=== PATIENT | male | born 1950 | race Caucasian/White ===

== ENCOUNTER 2018-06-20 21:28 | Inpatient (IN) | payer BC, OTHER ==
[~2018-06-20] VITALS: Ht 185.4 cm; Wt 90.7 kg
[2018-06-20 21:28] VITALS: BP_SYST 166
--- NOTE | 2018-06-20 21:35 | NUR ---
DINESH Cao at bedside examining patient.
--- NOTE | 2018-06-20 21:40 | NUR ---
Pt came to the ED for sudden onset of constant nausea associated with emesis all day since 0600 this morning. Pts reports she gave zofran and compazine PO with no relief. Pts last BM was today but was normal. Pts last chemo treatment was 1.5 months ago. Per pt, he a lobectomy two weeks ago at [facility]. Denies diarrhea, constipation, raw food consumption, no other complaints/injuries noted. Denies pain. Will cont. to monitor.
[2018-06-20] MEDS ORDERED: METOCLOPRAMIDE HCL 10 MG/2 ML VIAL IVP ONE (21:45)
--- NOTE | 2018-06-20 21:45 | NUR ---
DINESH Zamora at bedside examining patient.
[2018-06-20 22:15] LABS: BASOPHILS % (AUTO) 0.4 % (0.0-2.0); CREATININE 1.01 mg/dL (0.55-1.30); EOSINOPHILS % (AUTO) 0.1 % (0.0-4.0); HEMATOCRIT 38.2 % (36-54); HEMOGLOBIN 13.1 g/dL (14.0-18.0); LYMPHOCYTES # (AUTO) 1.3 K/uL (1.0-5.5); LYMPHOCYTES % (AUTO) 9.7 % (20.5-51.5); MEAN CORPUSCULAR HEMOGLOBIN 31 pg (27-31); MEAN CORPUSCULAR HGB CONC 34 % (32-36); MEAN CORPUSCULAR VOLUME 89 fL (79.0-98.0); MONOCYTES # (AUTO) 0.4 K/uL (0.0-1.0); MONOCYTES % (AUTO) 2.9 % (1.7-9.3); NEUTROPHILS # (AUTO) 11.3 K/uL (1.8-7.7); NEUTROPHILS % (AUTO) 86.9 % (40.0-70.0); PLATELET COUNT (AUTO) 617 K/uL (130-430); POTASSIUM 3.2 mmol/L (3.5-5.1); RED BLOOD CELL COUNT(AUTO) 4.29 MIL/uL (4.2-6.2); RED CELL DISTRIBUTION WIDTH 16.8 % (9.0-15.0); WHITE BLOOD COUNT (AUTO) 13.2 K/uL (4.8-10.8)
[2018-06-20] MEDS ORDERED: NS 500 ML IV ONE (22:15)
[2018-06-20 22:19] LABS: PROTHROMBIN TIME 10.3 SECS (9.5-12.5)
[2018-06-20 22:20] LABS: ALBUMIN 3.9 g/dL (3.4-4.8); TOTAL BILIRUBIN 0.3 mg/dL (0.0-1.0)
[2018-06-20] MEDS ORDERED: NOR10 PO (22:25)
[2018-06-20] MEDS ORDERED: DOCU-144 PO (22:25)
[2018-06-20] MEDS ORDERED: TAMS-11 PO (22:25)
[2018-06-20] MEDS ORDERED: HYDR-3925 PO (22:25)
[2018-06-20] MEDS ORDERED: VITD400 PO (22:25)
[2018-06-20] MEDS ORDERED: LORA-997 PO (22:25)
[2018-06-20] MEDS ORDERED: ONDA4TAB5 PO (22:25)
[2018-06-20] MEDS ORDERED: LANS15CA14 PO (22:25)
[2018-06-20] MEDS ORDERED: UMEC1BLS IH (22:25)
[2018-06-20] MEDS ORDERED: LORA-258 PO (22:25)
[2018-06-20] MEDS ORDERED: TRAM50TA2 PO (22:25)
[2018-06-20] MEDS ORDERED: IBUP-1969 PO (22:25)
[2018-06-20] MEDS ORDERED: ALBMDI INH (22:25)
[2018-06-20] MEDS ORDERED: TRIA1TAB96 PO (22:25)
[2018-06-20] MEDS ORDERED: PROC10TA13 PO (22:25)
[2018-06-20] MEDS ORDERED: POLY17PO4 PO (22:25)
[2018-06-20] MEDS ORDERED: METO50TA7 PO (22:25)
--- NOTE | 2018-06-20 22:26 | NUR ---
Medication reconciliation completed with information provided by patient. Any prior medication reconciliation on file was reviewed and corrected.
[2018-06-20] MEDS ORDERED: PROCHLORPERAZINE EDISYLATE 10 MG/2 ML VIAL IVP ONE (22:30)
[2018-06-20] MEDS ORDERED: hydrALAZINE HCL 20 MG/ML VIAL IVP ONE (22:45)
[2018-06-20] MEDS ORDERED: LEVOFLOXACIN 500 MG/D5W 100 ML IV ONE (23:00)
[2018-06-20] MEDS ORDERED: IOHEXOL 350 mgI/mL, 150 ML INFUS..BTL IV ONE (23:40)
[2018-06-21] VITALS (7 sets, daily range): BP systolic 133–176
--- NOTE | 2018-06-21 | NUR ---
Pt resting comfortably in bed no signs of distress.
[2018-06-21] MEDS ORDERED: MORPHINE 4 MG/ML INJ. SYRINGE IVP ONE (00:30)
[2018-06-21] MEDS ORDERED: NACL 0.9% 2,000 ML IV ONE (00:30)
[2018-06-21] MEDS ORDERED: POTASSIUM CHLORIDE 20 MEQ TAB.PRT.SR PO ONE (00:45)
[2018-06-21] MEDS ORDERED: ONDANSETRON HCL 4 MG/2 ML VIAL IVP ONE (01:00)
[2018-06-21 01:18] LABS: BILIRUBIN,URINE NEGATIVE (NEGATIVE); BLOOD, URINE NEGATIVE (NEGATIVE); CLARITY/URINE CLEAR (CLEAR); COLOR,URINE YELLOW (YELLOW); GLUCOSE,URINE NEGATIVE (NEGATIVE); KETONES,URINE 2+ (NEGATIVE); LEUKOCYTE ESTERASE ,URINE NEGATIVE (NEGATIVE); NITRITE, URINE NEGATIVE (NEGATIVE); PROTEIN URINE NEGATIVE (NEGATIVE); UROBILINOGEN,URINE 0.2 (0.2-1.0)
[2018-06-21] MEDS ORDERED: ACETAMINOPHEN 325 MG TABLET PO PRN (01:30)
[2018-06-21] MEDS ORDERED: HYDROmorphone 2 MG/ML VIAL IVP PRN (01:30)
--- NOTE | 2018-06-21 01:40 | NUR ---
Patient will be admitted to care of Dr. Sevilla. Admitted to Med surg unit. Will go to room 101A. Belongings list completed. Summary report printed. Report will be given at bedside.
--- NOTE | 2018-06-21 01:55 | NUR ---
ADMISSION NOTE Received patient from ER via faraz, received report from DEYSI MADDEN. Patient admitted with diagnosis of POSSIBLE PNEUMONIA. Patient oriented to hospital routine, call light, toileting and safety-patient verbalized understanding.
--- NOTE | 2018-06-21 01:55 | NUR ---
Transfer to [facility]. IV present no signs or symptoms of infiltration.
--- NOTE | 2018-06-21 01:57 | NUR ---
CONSULTATION PAGED REASON FOR CONSULTATION:PNEUMONIA WAS CONSULT CALLED?Y PERSON WHO WAS NOTIFIED:PREETI CONSULTING PHYSICIAN:LORENA THOMPSON ([employer]GU[employer] NUTRITION TEACHER) MACHINE ASSEMBLER SPECIALTY:PULMONARY MACHINE ASSEMBLER PHONE NUMBER:[phone] REQUESTING PHYSICIAN:HIRAM FAIRCHILD
--- NOTE | 2018-06-21 02:15 | NUR ---
Patient sitting up in bed with nausea and episodes vomiting. No pain or respiratory distress. at bedside and safety precautions in place.
[2018-06-21] MEDS ORDERED: amLODIPine BESYLATE 10 MG TABLET PO SCH (02:30)
[2018-06-21] MEDS ORDERED: ONDANSETRON HCL 4 MG/2 ML VIAL IVP SCH (02:30)
[2018-06-21] MEDS: KCL 20 mEq in D5/0.45NS 1000mL 1,000 ML IV SCH ×2 (03:13→15:53)
--- NOTE | 2018-06-21 04:49 | NUR ---
Patient in bed resting comfortably. no nausea or vomiting at this time.
[2018-06-21] MEDS ORDERED: PIPERACILLIN/TAZO 3.375 GM in NS 50 ML IV SCH (06:00)
[2018-06-21] MEDS ORDERED: LevALBUTEROL HCL 1.25 MG/0.5 ML *CONC.* VIAL.NEB (XOPENEX CONC.) INH SCH (06:00)
[2018-06-21] MEDS ORDERED: metroNIDAZOLE 500 mg/NS 100 ML IV SCH (06:30)
[2018-06-21] MEDS ORDERED: METOCLOPRAMIDE HCL 10 MG/2 ML VIAL IVP PRN (06:30)
[2018-06-21] MEDS: ONDANSETRON HCL 4 MG/2 ML VIAL IVP PRN ×4 (06:31→23:59)
--- NOTE | 2018-06-21 06:35 | NUR ---
CONSULTATION PAGED REASON FOR CONSULTATION: INTRACTABLE N/V WAS CONSULT CALLED? YES PERSON WHO WAS NOTIFIED: RONALDO CONSULTING PHYSICIAN: CHAPITO INSURANCE BILLING SPECIALIST SPECIALTY: GI REQUESTING PHYSICIAN: JOSE LUIS
--- NOTE | 2018-06-21 06:36 | NUR ---
CONSULT DR. MARTINEZ COVERING FOR DR. URIARTE
--- NOTE | 2018-06-21 06:51 | NUR ---
Closing Notes Patient in bed resting with complaints of N/V. Administered Zofran without relief, and administered reglan and tolerated. Will follow up. Patient states no pain at this time. IV site intact with no infiltration infusing fluids. All needs have been met and will endorse to day shift.
[2018-06-21 07:02] LABS: CREATININE 0.81 mg/dL (0.55-1.30); POTASSIUM 3.2 mmol/L (3.5-5.1)
[2018-06-21] MEDS ORDERED: PIPERACILLIN/TAZOBACTAM 3.375 GM/VIAL (ZOSYN) IV ONE (07:04)
[2018-06-21 07:16] LABS: TOTAL BILIRUBIN 0.3 mg/dL (0.0-1.0)
[2018-06-21 07:17] LABS: ALBUMIN 3.3 g/dL (3.4-4.8)
[2018-06-21 07:25] LABS: HEMATOCRIT 35.6 % (36-54); HEMOGLOBIN 12.2 g/dL (14.0-18.0); MEAN CORPUSCULAR HEMOGLOBIN 31 pg (27-31); MEAN CORPUSCULAR HGB CONC 34 % (32-36); MEAN CORPUSCULAR VOLUME 90 fL (79.0-98.0); RED BLOOD CELL COUNT(AUTO) 3.97 MIL/uL (4.2-6.2); RED CELL DISTRIBUTION WIDTH 16.7 % (9.0-15.0); WHITE BLOOD COUNT (AUTO) 9.6 K/uL (4.8-10.8)
[2018-06-21 07:26] LABS: BASOPHILS % (AUTO) 0.1 % (0.0-2.0); LYMPHOCYTES # (AUTO) 0.8 K/uL (1.0-5.5); LYMPHOCYTES % (AUTO) 7.9 % (20.5-51.5); MONOCYTES # (AUTO) 0.5 K/uL (0.0-1.0); MONOCYTES % (AUTO) 5.4 % (1.7-9.3); NEUTROPHILS # (AUTO) 8.3 K/uL (1.8-7.7); NEUTROPHILS % (AUTO) 86.6 % (40.0-70.0); PLATELET COUNT (AUTO) 496 K/uL (130-430)
[2018-06-21] MEDS ORDERED: PANTOPRAZOLE SODIUM 40 MG TAB PO SCH (07:30)
--- NOTE | 2018-06-21 07:30 | NUR ---
opening note patient is resting in bed, family is present, patient complaining of nausea and vomiting and said that the compazine given in ER is more effective,educated on plan of care and call light system, patient verbalized understanding, no other needs at this time, bed in the lowest position, two side rails up, call light within reach, allergy band on, fall and safety precautions in place. Spoke to Dr Humphrey about the compazine and he okayed to put in a one time order for it and will put in new orders. Addendum: 06/21/18 at 1036 by Katie Fallon RN assessment completed, patient is A&Ox4
[2018-06-21] MEDS: METOCLOPRAMIDE HCL 10 MG/2 ML VIAL IVP SCH ×5 (07:45→22:27)
[2018-06-21] MEDS ORDERED: PROCHLORPERAZINE EDISYLATE 10 MG/2 ML VIAL IVP ONE (08:00)
[2018-06-21] MEDS: METOPROLOL SUCCINATE 50 MG TAB.SR.24H (TOPROL XL) PO SCH (08:24)
--- NOTE | 2018-06-21 08:30 | NUR ---
morning medications patient is resting in bed, family present, educated on med use and side effects, patient verbalized understanding and tolerated well, patient states he does not want the scheduled reglan right now because he wants to see if Compazine can work on its own, zosyn given late because it was not available earlier, no other needs at this time, bed in the lowest position, two side rails up, call light within reach, allergy band on, fall and safety precautions in place.
[2018-06-21] MEDS: PANTOPRAZOLE SODIUM 40 MG/VIAL (PROTONIX) IVP SCH ×2 (08:32→22:27)
[2018-06-21] MEDS: ENOXAPARIN SODIUM 40 MG/0.4 ML SYRINGE SUBCUT SCH (08:34)
--- NOTE | 2018-06-21 09:15 | NUR ---
flagyl patient resting in bed, family present, flagyl given late because it was not available and there was another antibiotic scheduled at the same time, educated on med use and side effects, patient verbalized understanding and tolerated well, no other needs at this time, bed in the lowest position, two side rails up, call light within reach, allergy band on, fall and safety precautions in place.
--- NOTE | 2018-06-21 09:43 | NUR ---
scheduled reglan patient came back from [place], patient changed his mind and does want to take the scheduled reglan because he still feels nauseous, family is present, educated on med use and side effects, patient verbalized understanding and tolerated well, no other needs at this time, bed in the lowest position, two side rails up, call light within reach, allergy band on, fall and safety precautions in place.
--- NOTE | 2018-06-21 10:56 | NUR ---
JAIDEN patient resting in bed, family present, ultrasound being done in room, patient complaining of nausea, educated on med use and side effects, patient verbalized understanding and tolerated well, no other needs at this time, bed in the lowest position, two side rails up, call light within reach, allergy band on, fall and safety precautions in place.
[2018-06-21] MEDS: hydrALAZINE HCL 20 MG/ML VIAL IVP PRN ×2 (11:53→15:54)
--- NOTE | 2018-06-21 11:53 | NUR ---
Hydralazine patient resting in bed, family present, patient's BP was 175/101, educated on med use and side effects, patient verbalized understanding and tolerated well, no other needs at this time, bed in the lowest position, two side rails up, call light within reach, allergy band on, fall and safety precautions in place.
--- NOTE | 2018-06-21 13:10 | NUR ---
rounds patient resting in bed, family present, informed patient that he does get scheduled reglan to help manage his N/V, patient said that he does not want it right now but will call when he does, no other needs at this time, bed in the lowest position, two side rails up, call light within reach, allergy band on, fall and safety precautions in place.
--- NOTE | 2018-06-21 14:10 | NUR ---
spoke to Dr Griffin in regards to patient's blood pressure increasing due to the N/V, no new orders, just give PRN hydralazine as needed.
--- NOTE | 2018-06-21 14:22 | NUR ---
scheduled reglan patient resting in bed, family present, educated on med use and side effects, patient verbalized understanding and tolerated well, no other needs at this time, bed in the lowest position, two side rails up, call light within reach, allergy band on, fall and safety precautions in place. Addendum: 06/21/18 at 1423 by Katie Fallon RN [id number] reglan given
--- NOTE | 2018-06-21 15:53 | NUR ---
Hydralazine and zofran patient resting in bed, family present, patient's BP was 170/93, patient vomiting, educated on med use and side effects, patient verbalized understanding and tolerated well, no other needs at this time, bed in the lowest position, two side rails up, call light within reach, allergy band on, fall and safety precautions in place.
--- NOTE | 2018-06-21 17:50 | NUR ---
rounds patient resting in bed, family present, explained to patent and family that there is still no results for US of the abdomen, no other needs at this time, bed in the lowest position, two side rails up, call light within reach, allergy band on, fall and safety precautions in place.
--- NOTE | 2018-06-21 18:30 | NUR ---
CLOSING NOTE patient resting in sitting in chair, family present, patient has nausea but states he can wait until the next available medication for it, no other needs at this time, will endorse report to noc shift nurse, call light within reach, allergy band on, fall and safety precautions in place.
--- NOTE | 2018-06-21 19:30 | NUR ---
OPENING NOTE Patient is resting supine, awake, AOx4. Non labored breathing on room air. He has two IV's; RAC 20G SL and LAC 22G has IVF infusing. Updated board. Bed is locked to lowest position, bed alarm is off, patient refused, and call light is w/in reach.
[2018-06-21] MEDS: LEVOFLOXACIN 500 MG/D5W 100 ML IV SCH (23:45)
[2018-06-22 01:47] VITALS: BP_SYST 156
[2018-06-22] MEDS: hydrALAZINE HCL 20 MG/ML VIAL IVP PRN (02:02)
[2018-06-22] MEDS: ONDANSETRON HCL 4 MG/2 ML VIAL IVP PRN ×3 (03:29→18:17)
[2018-06-22] MEDS: KCL 20 mEq in D5/0.45NS 1000mL 1,000 ML IV SCH (03:29)
--- NOTE | 2018-06-22 03:40 | NUR ---
C/O NAUSEA Patient is reporting nausea and has been sitting up w/ emesis bag close to him. Emesis bag had 50ml of clear-light green fluid. He was administered zofran prn as ordered. Will monitor.
[2018-06-22] MEDS ORDERED: LevALBUTEROL HCL 1.25 MG/0.5 ML *CONC.* VIAL.NEB (XOPENEX CONC.) INH PRN (06:00)
[2018-06-22] MEDS: METOCLOPRAMIDE HCL 10 MG/2 ML VIAL IVP SCH ×3 (06:05→22:09)
[2018-06-22 07:00] LABS: ALBUMIN 3.7 g/dL (3.4-4.8); CALCIUM 9.2 mg/dL (8.4-11.0); CREATININE 0.75 mg/dL (0.55-1.30); TOTAL BILIRUBIN 0.4 mg/dL (0.0-1.0)
[2018-06-22 07:09] LABS: POTASSIUM 2.5 mmol/L (3.5-5.1)
[2018-06-22] MEDS ORDERED: NA PHOS,M-B/NA PHOS,DI-BA 118 ML (FLEET ENEMA) RC ONE (07:30)
--- NOTE | 2018-06-22 07:40 | NUR ---
opening note patient is resting in bed, family is present, A&Ox4, assessment completed, patient complaining of nausea and vomiting and said that the compazine is more effective,educated on plan of care and call light system, patient verbalized understanding, no other needs at this time, bed in the lowest position, two side rails up, call light within reach, allergy band on, fall and safety precautions in place. Spoke to Dr Humphrey about the compazine and he okayed to put in a one time order for it and will put in new orders.
[2018-06-22] MEDS ORDERED: PROCHLORPERAZINE EDISYLATE 10 MG/2 ML VIAL IVP ONE (08:00)
[2018-06-22 08:46] LABS: HEMOGLOBIN 12.6 g/dL (14.0-18.0); RED BLOOD CELL COUNT(AUTO) 4.09 MIL/uL (4.2-6.2); WHITE BLOOD COUNT (AUTO) 10.4 K/uL (4.8-10.8)
[2018-06-22 08:47] LABS: HEMATOCRIT 36.4 % (36-54); LYMPHOCYTES % (AUTO) 12.7 % (20.5-51.5); MEAN CORPUSCULAR HEMOGLOBIN 31 pg (27-31); MEAN CORPUSCULAR HGB CONC 35 % (32-36); MEAN CORPUSCULAR VOLUME 89 fL (79.0-98.0); MONOCYTES % (AUTO) 7.1 % (1.7-9.3); PLATELET COUNT (AUTO) 606 K/uL (130-430); RED CELL DISTRIBUTION WIDTH 16.7 % (9.0-15.0)
[2018-06-22 08:48] LABS: BASOPHILS % (AUTO) 0.1 % (0.0-2.0); EOSINOPHILS % (AUTO) 0.1 % (0.0-4.0); LYMPHOCYTES # (AUTO) 1.3 K/uL (1.0-5.5); MONOCYTES # (AUTO) 0.7 K/uL (0.0-1.0); NEUTROPHILS # (AUTO) 8.3 K/uL (1.8-7.7)
[2018-06-22] MEDS ORDERED: POTASSIUM CHLORIDE 40 MEQ in NS 250 ML IV ONE ×3 (09:00→20:15)
[2018-06-22] MEDS: METOPROLOL SUCCINATE 50 MG TAB.SR.24H (TOPROL XL) PO SCH (09:06)
[2018-06-22] MEDS: PANTOPRAZOLE SODIUM 40 MG/VIAL (PROTONIX) IVP SCH ×2 (09:06→22:09)
[2018-06-22] MEDS: POLYETHYLENE GLYCOL 3350, 17 GM/ POWD.PACK PO SCH (09:06)
--- NOTE | 2018-06-22 09:06 | NUR ---
morning medications patient is resting in bed, family present, educated on med use and side effects, patient verbalized understanding and tolerated well, one time fleet enema given, potassium was 2.5 patient is getting 40mEq of Krider, one time compazine given for N/V patient states that this medication is effective, no other needs at this time, bed in the lowest position, two side rails up, call light within reach, allergy band on, fall and safety precautions in place.
[2018-06-22] MEDS: ENOXAPARIN SODIUM 40 MG/0.4 ML SYRINGE SUBCUT SCH (09:08)
[2018-06-22 09:46] VITALS: BP_SYST 159
--- NOTE | 2018-06-22 11:13 | NUR ---
rounds patient is resting in bed, family is present, patient states that he did have a bowel movement and ever since his nausea has improved, no other needs at this time, bed in the lowest position, two side rails up, call light within reach, allergy band on, fall and safety precautions in place.
[2018-06-22 11:27] VITALS: BP_SYST 146
[2018-06-22] MEDS: POTASSIUM CHLORIDE 40 MEQ in NACL 0.9% 1,000 ML IV SCH ×2 (12:15→21:42)
--- NOTE | 2018-06-22 12:15 | NUR ---
zofran and new IV fluids patient is resting in bed, family is present, educated on med use and side effects, patient verbalized understanding and tolerated well, no other needs at this time, bed in the lowest position, two side rails up, call light within reach, allergy band on, fall and safety precautions in place.
--- NOTE | 2018-06-22 14:00 | NUR ---
verna patient is resting in bed, family is present, educated on med use and side effects, patient verbalized understanding and tolerated well, no other needs at this time, bed in the lowest position, two side rails up, call light within reach, allergy band on, fall and safety precautions in place.
--- NOTE | 2018-06-22 14:45 | NUR ---
DC PLANNING Order for transfer to [facility] as per pt request. Spoke w pt & 2 dtrs Jia & Christal @ bedside. Does not need to transfer to [facility], only if find something that requires transfer.
[2018-06-22 15:15] VITALS: BP_SYST 141
--- NOTE | 2018-06-22 18:17 | NUR ---
JAIDEN patient is resting in bed, family is present, complaining of nausea, educated on med use and side effects, patient verbalized understanding and tolerated well, no other needs at this time, bed in the lowest position, two side rails up, call light within reach, allergy band on, fall and safety precautions in place.
--- NOTE | 2018-06-22 18:41 | NUR ---
CLOSING NOTE patient resting in bed, family present, no other needs at this time, will endorse report to noc shift nurse about calling Dr Griffin for the results of the potassium level, call light within reach, allergy band on, fall and safety precautions in place.
[2018-06-22 19:00] LABS: CALCIUM 8.8 mg/dL (8.4-11.0); CREATININE 0.89 mg/dL (0.55-1.30)
[2018-06-22 19:08] LABS: POTASSIUM 2.9 mmol/L (3.5-5.1)
--- NOTE | 2018-06-22 19:15 | NUR ---
LESLEE MUÑOZ Addendum: 06/22/18 at 2002 by Genet Mckeon CNA LESLEE AMAYA
--- NOTE | 2018-06-22 19:16 | NUR ---
OPENING NOTE Patient is resting bed, awake, AOx4. Non labored breathing on room air. He has IVF infusing as ordered. Updated board. Bed is locked to lowest position, and call light is w/in reach.
--- NOTE | 2018-06-22 19:40 | NUR ---
LESLEE MUÑOZ Addendum: 06/22/18 at 2001 by Genet Mckeon CNA LESLEE AMAYA
--- NOTE | 2018-06-22 19:40 | NUR ---
opening note Patient resting, awake, AOx4, non labored breathing on room air. is at bedside. IV infusing as ordered.
[2018-06-22 20:00] VITALS: BP_SYST 160
--- NOTE | 2018-06-22 20:00 | NUR ---
3RD PAGED PAGED DOCTOR AMAYA
--- NOTE | 2018-06-22 20:05 | NUR ---
s/w MD Spoke w/ Dr. Griffin, received orders for K-rider and to have patient stay the night.
[2018-06-22] MEDS ORDERED: KCL 40 mEq in 100 mL (PREMIX) 100 ML IV ONE (20:32)
--- NOTE | 2018-06-22 23:30 | NUR ---
ROUNDS Patient is resting w/eyes closed. I came to assess how he is doing w/ nause and asked that I let him sleep. She said he will call to request zofran if experiences nausea. Will monitor.
[2018-06-23 00:11] VITALS: BP_SYST 157
[2018-06-23] MEDS: LEVOFLOXACIN 500 MG/D5W 100 ML IV SCH (00:51)
[2018-06-23] MEDS: ONDANSETRON HCL 4 MG/2 ML VIAL IVP PRN ×2 (00:52→04:26)
[2018-06-23] MEDS: POTASSIUM CHLORIDE 40 MEQ in NACL 0.9% 1,000 ML IV SCH ×2 (06:05→15:54)
[2018-06-23] MEDS: METOCLOPRAMIDE HCL 10 MG/2 ML VIAL IVP SCH ×2 (06:06→14:49)
--- NOTE | 2018-06-23 06:15 | NUR ---
Closing note Patient resting in comfortable position. Administered due medication. IVF infusing as ordered. Needs met throughout shift. Will endorse care to day shift nurse.
--- NOTE | 2018-06-23 06:50 | NUR ---
Nutrition Update Benjamin Scale 18 noted. Pt admitted for possible pneumonia Diet: clear liquid diet BMI: 26.4 kg/m2 RD to follow per nutrition care standards.
[2018-06-23 07:33] LABS: CALCIUM 9.2 mg/dL (8.4-11.0); CREATININE 0.79 mg/dL (0.55-1.30); POTASSIUM 3.2 mmol/L (3.5-5.1)
[2018-06-23 07:48] LABS: HEMATOCRIT 35.8 % (36-54); HEMOGLOBIN 12.4 g/dL (14.0-18.0); MEAN CORPUSCULAR HEMOGLOBIN 31 pg (27-31); MEAN CORPUSCULAR VOLUME 90 fL (79.0-98.0); RED BLOOD CELL COUNT(AUTO) 3.99 MIL/uL (4.2-6.2); WHITE BLOOD COUNT (AUTO) 8.3 K/uL (4.8-10.8)
[2018-06-23 07:49] LABS: BASOPHILS % (AUTO) 0.2 % (0.0-2.0); EOSINOPHILS % (AUTO) 0.1 % (0.0-4.0); LYMPHOCYTES % (AUTO) 12.4 % (20.5-51.5); MEAN CORPUSCULAR HGB CONC 35 % (32-36); MONOCYTES # (AUTO) 0.7 K/uL (0.0-1.0); MONOCYTES % (AUTO) 8.3 % (1.7-9.3); NEUTROPHILS # (AUTO) 6.6 K/uL (1.8-7.7); PLATELET COUNT (AUTO) 546 K/uL (130-430); RED CELL DISTRIBUTION WIDTH 16.3 % (9.0-15.0)
--- NOTE | 2018-06-23 08:05 | NUR ---
OPENING NOTE PATIENT RECEIVED RESTING IN BED A&O X4, PATIENT DENIES ANY ACUTE DISTRESS OR PAIN AT THIS TIME, BREATHING IS EVEN AND UNLABORED ON ROOM AIR, IVF INFUSING WELL WITH NO SIGNS OF INFILTRATION, EDUCATED PATIENT ON PLAN OF CARE AND CALL LIGHT SYSTEM, WILL CONTINUE TO MONITOR, SAFETY PRECAUTIONS IN PLACE, FAMILY AT BEDSIDE, CALL LIGHT WITHIN REACH.
[2018-06-23 08:07] VITALS: BP_SYST 127
[2018-06-23] MEDS: PANTOPRAZOLE SODIUM 40 MG/VIAL (PROTONIX) IVP SCH (08:51)
[2018-06-23] MEDS: ENOXAPARIN SODIUM 40 MG/0.4 ML SYRINGE SUBCUT SCH (08:52)
[2018-06-23] MEDS: POLYETHYLENE GLYCOL 3350, 17 GM/ POWD.PACK PO SCH (08:52)
[2018-06-23] MEDS: METOPROLOL SUCCINATE 50 MG TAB.SR.24H (TOPROL XL) PO SCH (08:53)
[2018-06-23] MEDS ORDERED: POTASSIUM CHLORIDE 20 MEQ TAB.PRT.SR PO ONE (09:15)
[2018-06-23 09:48] VITALS: BP_SYST 127
--- NOTE | 2018-06-23 10:10 | NUR ---
NOTES PATIENT IS RESTING IN BED WITH EYES CLOSED, PATIENT DENIES ANY ACUTE DISTRESS OR PAIN, IVF INFUSING WELL WITH NO SIGNS OF INFILTRATION, PATIENT DENIES ANY NAUSEA OR VOMITING, WILL CONTINUE TO MONITOR, SAFETY PRECAUTIONS IN PLACE, AT BEDSIDE, CALL LIGHT WITHIN REACH.
[2018-06-23 11:35] VITALS: BP_SYST 147
--- NOTE | 2018-06-23 11:51 | NUR ---
Dietitian Recommendations *Recommend continuing clear liquid diet per MD orders. *Recommend advance diet when medically appropriate. (Full liquid diet w/ Ensure Enlive). Please see nutritional assessment for details. SONNY, RD
--- NOTE | 2018-06-23 12:17 | NUR ---
NOTES PATIENT IS RESTING IN BED, PATIENT DENIES ANY NAUSEA OR VOMITING, NO ACUTE DISTRESS OR PAIN IS NOTED AT THIS TIME, WILL CONTINUE TO MONITOR, IVF INFUSING WELL WITH NO SIGNS OF INFILTRATION, BREATHING EVEN AND UNLABORED, SAFETY PRECAUTIONS IN PLACE, CALL LIGHT WITHIN REACH.
--- NOTE | 2018-06-23 14:02 | NUR ---
NOTES PATIENT IS RESTING IN BED, PATIENT DENIES ANY ACUTE DISTRESS OR PAIN AT THIS TIME, IVF INFUSING WELL WITH NO SIGNS OF INFILTRATION, PATIENT DENIES ANY NAUSEA OR VOMITING, WILL CONTINUE TO MONITOR, SAFETY PRECAUTIONS IN PLACE, CALL LIGHT WITHIN REACH, FAMILY AT BEDSIDE.
--- NOTE | 2018-06-23 14:09 | NUR ---
DC Planning: Per Melissa, spouse stated that she spoke with Dr. Rudolph at [facility] that the md wants pt. to go home and f/u out patient if symptom is worsen. No transfer to [facility] needed.
[2018-06-23] MEDS ORDERED: MAGNESIUM SULFATE 4 GM in D5W 250 ML IV ONE (15:00)
[2018-06-23 15:46] VITALS: BP_SYST 146
[2018-06-23 16:49] VITALS: BP_SYST 146
--- NOTE | 2018-06-23 16:50 | NUR ---
NOTES PATIENT RESTING IN BED A&O X4, PATIENT DENIES ANY ACUTE DISTRESS OR PAIN AT THIS TIME, NO SOB OR N/V NOTED, IVF INFUSING WELL WITH NO SIGNS OF INFILTRATION, BREATHING IS EVEN AND UNLABORED, WILL CONTINUE TO MONITOR, ASSISTED PATIENT TO AMBULATE TO BATHROOM WITH STEADY GAIT, SAFETY PRECAUTIONS IN PLACE, CALL LIGHT WITHIN REACH.
--- NOTE | 2018-06-23 18:25 | NUR ---
CLOSING NOTE PATIENT IS RESTING IN BED A&O X4, PATIENT DENIES ANY ACUTE DISTRESS OR SOB, NO NAUSEA OR VOMITING NOTED, IVF INFUSING WELL WITH NO SIGNS OF INFILTRATION, ALL NEEDS WERE MET THROUGHOUT SHIFT, IS AT BEDSIDE, ALL NEEDS WERE MET THROUGHOUT SHIFT, WILL ENDORSE REPORT TO ONCOMING NURSE, SAFETY PRECAUTIONS IN PLACE, CALL LIGHT WITHIN REACH.
--- NOTE | 2018-06-26 11:47 | NUR ---
Discharge Follow Up Phone Call Personal Injury Specialist phoned patient, , and left voicemail messages on 06/24/18, 06/25/18, and 06/26/18 with reminder to make follow up appointments, offer of assistance and Social Service contact information. No further calls will be made.
== END 2018-06-23 18:50 | disposition home or self-care (01) | DRG 872 ==
LOC: SED 21:28 → SMU 06-21 01:20
PROVIDERS: ADMIT Family Medicine; ATTEND Family Medicine
DX: A41.9 Sepsis, unspecified organism (principal); S22.32XA Fracture of one rib, left side, initial encounter for closed fracture; C34.90 Malignant neoplasm of unspecified part of unspecified bronchus or lung; E87.1 Hypo-osmolality and hyponatremia; J90 Pleural effusion, not elsewhere classified; E66.9 Obesity, unspecified; E78.5 Hyperlipidemia, unspecified; I10 Essential (primary) hypertension; J44.9 Chronic obstructive pulmonary disease, unspecified; K59.00 Constipation, unspecified; E11.9 Type 2 diabetes mellitus without complications; E87.6 Hypokalemia; K44.9 Diaphragmatic hernia without obstruction or gangrene; K57.90 Diverticulosis of intestine, part unspecified, without perforation or abscess without bleeding; X58.XXXA Exposure to other specified factors, initial encounter; Z85.118 Personal history of other malignant neoplasm of bronchus and lung; Z87.891 Personal history of nicotine dependence; Z90.2 Acquired absence of lung [part of]; Z92.21 Personal history of antineoplastic chemotherapy; Z88.0 Allergy status to penicillin; Z79.899 Other long term (current) drug therapy; Z68.26 Body mass index [BMI] 26.0-26.9, adult; Y93.89 Activity, other specified; Y92.89 Other specified places as the place of occurrence of the external cause; Y99.8 Other external cause status
CPT/HCPCS: 36415; 70450-TC; 71045; 71275; 74018; 76700-TC; 80048; 80053; 81003; 82150-TC; 83605; 83690-TC; 83735-TC; 83880; 84484; 85025; 85379; 85610-TC; 85730-TC; 87040-TC; 87081; 87086; 93005; 94640; 96361; 96365; 96375; 99291; C9113; J0360; J0780; J1650; J1956; J2405; J2543; J2765; J3475; J3480; J3490; J7030; J7050; J7060; J7612; Q9967